=== PATIENT | male | born 1985 | race Caucasian/White ===

== ENCOUNTER 2019-06-02 10:32 | Emergency (ER) | payer BC, OTHER ==
[~2019-06-02] VITALS: Ht 172.7 cm; Wt 104.3 kg
[2019-06-02] MEDS ORDERED: OMEPRAZOLE 20 M20 M1 PO (10:40)
[2019-06-02] MEDS ORDERED: ZYRTEC10 M4 PO (10:41)
[2019-06-02] MEDS ORDERED: GAS RELIEF 8080 MG PO (10:41)
[2019-06-02] MEDS ORDERED: PREDNISONE 20 M20 MG PO (12:53)
[2019-06-02] MEDS ORDERED: ZANTAC 150MG T150 MG PO (12:53)
[2019-06-02] MEDS ORDERED: EPIPEN0.3 MG/0.1 IM (12:56)
[2019-06-02 13:04] VITALS: BP 143/94
== END 2019-06-02 13:06 | disposition home or self-care (01) ==
LOC: ER 10:32
DX: L53.9 Erythematous condition, unspecified (principal); T50.995A Adverse effect of other drugs, medicaments and biological substances, initial encounter; J45.909 Unspecified asthma, uncomplicated; G43.909 Migraine, unspecified, not intractable, without status migrainosus; Y92.89 Other specified places as the place of occurrence of the external cause